=== PATIENT | male | born 1990 | race Caucasian/White ===

== ENCOUNTER 2017-06-06 16:33 | Emergency (ER) | payer OTHER ==
[~2017-06-06] VITALS: Ht 185.4 cm; Wt 72.7 kg
[2017-06-06] MEDS ORDERED: NORCO 10/3251 TABLET PO (18:07)
[2017-06-06] MEDS ORDERED: MOTRIN800 MG PO (18:07)
[2017-06-06 18:43] VITALS: BP 112/76
== END 2017-06-06 18:44 | disposition home or self-care (01) ==
LOC: EME 16:33
DX: S42.022A Displaced fracture of shaft of left clavicle, initial encounter for closed fracture (principal); V00.311A Fall from snowboard, initial encounter; Y92.39 Other specified sports and athletic area as the place of occurrence of the external cause; Y93.23 Activity, snow (alpine) (downhill) skiing, snowboarding, sledding, tobogganing and snow tubing
CPT/HCPCS: 73000; 73030; 99281; 99284